=== PATIENT | male | born 2000 | race Caucasian/White ===

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

== ENCOUNTER 2021-09-17 08:01 | Outpatient (CLI) | payer OTHER, SELFPAY ==
[2021-09-17 18:59] LABS: Anion Gap 5 mmol/L (8-16); Blood Urea Nitrogen 15 mg/dL (9-20); Carbon Dioxide 29 mmol/L (22-30); Chloride 104 mmol/L (98-107); Cholesterol 149 mg/dL (0-200); Estimated Glomerular Filt Rate > 60; Glucose 96 mg/dL (65-110); HDL Direct 70 mg/dL; Potassium 4.3 mmol/L (3.4-5.0); Sodium 138 mmol/L (137-145); Triglycerides 37 mg/dL (<150)
[2021-09-17 19:10] LABS: LDL Cholesterol Direct 58 mg/dL
[2021-09-17 20:05] LABS: Vitamin D 25 Hydroxy 45.8 ng/mL
[2021-09-21 15:08] LABS: Z Score Male -0.2 SD (-2.0 - +2.0)
== END 2021-09-17 08:02 | disposition home or self-care (01) ==
LOC: ANHASCLAB 08:08
PROVIDERS: Visit Provider Pediatrics Pediatric Endocrinology
DX: E23.0 Hypopituitarism (principal)
CPT/HCPCS: 36415; 80048; 80061; 82306; 82533; 84305; 84436; 84443